=== PATIENT | male | born 1975 | race Caucasian/White ===

== ENCOUNTER 2019-11-15 18:44 | Emergency (ER) | payer SELFPAY ==
[2019-11-15] MEDS ORDERED: Ketorolac 60 MG/2 ML SDV IM ONE (18:57)
[2019-11-15] MEDS ORDERED: Cyclobenzaprine 10 MG Tab PO ONE (18:57)
[2019-11-15] MEDS ORDERED: Diazepam 10 MG Tab PO ONE (19:05)
--- NOTE | 2019-11-15 19:12 | EDM.PDOC ---
ED HPI GENERAL MEDICAL PROBLEM - General Chief Complaint: Back Pain or Injury Stated Complaint: LT SIDE PAIN Time Seen by Provider: 11/15/19 18:45 Source of Information: Reports: Patient History Limitations: Reports: No Limitations - History of Present Illness INITIAL COMMENTS - FREE TEXT/NARRATIVE: 4 days ago , was sleeping when dog jumped on the bed and he woke up with dog on him and having back pain with radiation down the left leg , pain radiates to the knee , tenderness noted on the lower back in the lumbar region denies any trauma states had same happen to him in the past Onset: Sudden Onset Date: 11/10/19 Duration: Day(s): (4), Getting Worse Location: Reports: Back, Lower Extremity, Left Quality: Reports: Ache, Dull, Throbbing Severity: Moderate Improves with: Reports: Cold Therapy, Heat Therapy, Immobilization Worsens with: Reports: Movement Context: Reports: Other Associated Symptoms: Reports: No Other Symptoms back Pain Score (Numeric/FACES): 9 - Related Data Allergies Allergy/AdvReac Type Severity Reaction Status Date / Time No Known Allergies Allergy Verified 11/15/19 18:57 Home Meds: Home Meds Cyclobenzaprine [Flexeril] 10 mg PO TID #30 tab 11/15/19 [Rx] ED ROS GENERAL - Review of Systems Review Of Systems: See Below Constitutional: Reports: No Symptoms HEENT: Reports: No Symptoms Respiratory: Reports: No Symptoms Cardiovascular: Reports: No Symptoms Endocrine: Reports: No Symptoms GI/Abdominal: Reports: No Symptoms : Reports: No Symptoms Musculoskeletal: Reports: Back Pain Skin: Reports: No Symptoms Neurological: Reports: No Symptoms Psychiatric: Reports: No Symptoms Hematologic/Lymphatic: Reports: No Symptoms ED EXAM,LOWER BACK PAIN/INJURY - Physical Exam Exam: See Below Exam Limited By: No Limitations General Appearance: Alert, WD/WN, No Apparent Distress Eye Exam: Bilateral Eye: EOMI Ears: Normal External Exam Head: Atraumatic Neck: Supple, Non-Tender Respiratory/Chest: Lungs Clear, Normal Breath Sounds Back Exam: Decreased Range of Motion, Muscle Spasm, Paraspinal Tenderness Extremities: Limited Range of Motion Neurological: Alert, Normal Mood/Affect Psychiatric: Normal Affect Skin Exam: Warm Course - Vital Signs Last Recorded V/S: Last Vital Signs Temp 36.7 C 11/15/19 19:20 Pulse 74 11/15/19 19:20 Resp 17 11/15/19 19:20 BP 143/91 H 11/15/19 19:20 Pulse Ox 99 11/15/19 19:20 - Orders/Labs/Meds Meds: Medications Discontinued Medications Generic Name Dose Route Start Last Admin Trade Name Angela PRN Reason Stop Dose Admin Cyclobenzaprine HCl 10 mg 11/15/19 18:57 11/15/19 19:21 Flexeril PO 11/15/19 18:58 Not Given ONETIME ONE Diazepam 10 mg 11/15/19 19:05 11/15/19 19:18 Valium PO 11/15/19 19:06 10 mg ONETIME ONE Administration Ketorolac Tromethamine 60 mg 11/15/19 18:57 11/15/19 19:20 Toradol IM 11/15/19 18:58 60 mg ONETIME ONE Administration - Re-Assessments/Exams Free Text/Narrative Re-Assessment/Exam: 11/15/19 19:10 pt given dose of toradol im and diazepam orally Departure - Departure Time of Disposition: 19:40 Disposition: Home, Self-Care 01 Clinical Impression: Sciatica of left side - Discharge Information Prescriptions: Cyclobenzaprine [Flexeril] 10 mg PO TID #30 tab Instructions: Muscle Cramps and Spasms, [id number], Chronic Back Pain, Easy- to-Read Referrals: PCP,None [Primary Care Provider] - Forms: ED Department Discharge Additional Instructions: please take flexeril 10mg po three times a day as needed you may take Tylenol and ibuprofen for your pain as needed rest at home if the symptom persists, follow up with your primary care as needed Sepsis Event Note - Focused Exam Vital Signs: Vital Signs Temp Pulse Resp BP Pulse Ox 11/15/19 19:20 36.7 C 74 17 143/91 H 99 11/15/19 18:44 36.1 C 106 H 17 142/118 H 100 Date Exam was Performed: 11/16/19 Time Exam was Performed: 01:40
== END 2019-11-15 19:41 | disposition home or self-care (01) ==
LOC: FB.ED 18:44
DX: M54.42 Lumbago with sciatica, left side (principal)
CPT/HCPCS: 96372; 99283; A9270; J1885